=== PATIENT | male | born 1950 ===

== ENCOUNTER 2023-12-07 14:36 | Emergency (ER) | payer MEDICARE, OTHER, SELFPAY ==
[2023-12-07 14:48] VITALS: BP 126/65
[2023-12-07 15:16] LABS: % Basophils 0.4 % (0-2); % Eosinophils 0.1 % (0-6); % Immature Granulocytes 0.6 % (0-0.5); % Monocytes 6.2 % (1.7-9.3); % Neutrophils 88.7 % (42.2-75.2); Absolute Basophils 0.1 10^3/uL (0-0.2); Absolute Immature Granulocytes 0.1 10^3/uL (0-0.05); Absolute Lymphocytes 0.5 10^3/uL (1.2-3.4); Absolute Monocytes 0.9 10^3/uL (0.1-0.6); Absolute Neutrophils 12.1 10^3/uL (1.4-6.5); Hematocrit 40.2 % (39.0-52.0); Mean Corp Hgb Conc. 34.8 g/dL (33.0-37.0); Mean Corpuscular Hgb 30.8 pg (27.0-31.0); Mean Corpuscular Volume 88.4 fL (80.0-94.0); Mean Platelet Volume 11.1 fL (7.4-10.4); Nucleated Red Blood Cells % 0 % (-); Platelet Count 235 10^3/uL (130-400); Red Blood Cell Count 4.55 10^6/uL (4.70-6.10); Red Cell Dist. Width 13.2 % (11.5-14.5); White Blood Cell Count 13.6 10^3/uL (4.8-10.8)
[2023-12-07 15:17] LABS: Urine Albumin 1+ (Neg - Trace); Urine Bilirubin 1+ (Negative); Urine Character Slightly Cloudy (Clear); Urine Color Amber; Urine Glucose 3+ (Negative); Urine Ketone 1+ (Negative); Urine Leukocyte 2+ (Negative); Urine Nitrite Negative (Negative); Urine Occult Blood 4+ (Negative); Urine Urobilinogen Negative (Neg - 1+)
[2023-12-07 15:28] LABS: Urine Red Blood Cell 80-90 /HPF (0-2); Urine Squamous Cell 16-20 /LPF (Few)
[2023-12-07 15:29] LABS: Urine Bacteria Many (Negative); Urine White Cell 26-30 /HPF (0-5)
[2023-12-07 15:33] LABS: ALT (SGPT) 20 U/L (0-50); AST (SGOT) 26 U/L (17-59); Albumin 4.6 g/dl (3.5-5.0); Alkaline Phosphatase 57 U/L (38-126); Blood Urea Nitrogen 25 mg/dl (9-20); Calcium 9.7 mg/dl (8.4-10.2); Carbon Dioxide 20 mmol/L (22-30); Chloride 107 mmol/L (98-107); Glucose 287 mg/dl (70-99); Sodium 140 mmol/L (135-145); Total Bilirubin 0.8 mg/dl (0.2-1.3); Total Protein 7.7 g/dl (6.3-8.2); eGFR > 60.00
[2023-12-07 15:45] LABS: Potassium 4.4 mmol/L (3.5-5.1)
--- NOTE | 2023-12-07 18:01 | ED.GENMED ---
History of Present Illness
General
Chief Complaint: Flank Pain
Source: patient
Exam Limitations: none
Time Seen by Provider: 12/07/23 18:00
Travel History
Have you had any contact with someone who has COVID-19?: No
Do you have any symptoms of coronavirus? Fever > 100 degrees, chills, cough, shortness of breath, sore throat, loss of taste or smell, muscle aches, or headache?: No
History of Present Illness
History of Present Illness:
This is a 73 year old male that comes in with c/o left flank pain. States that he awoke this morning with pain. States that his heart rate was also elevated and it was very painful on the left flank. States that they went to as he started to
vomit. States that they gave him Zofran. States that he still feels a little discomfort. States that he did have urinary burning. Denies any fever, chills, chest pain, SOB, diarrhea, headache, dizziness.
Past History
Past History
ED Past Medical History: NIDDM and Other (Renal calculus, )
ED Past Surgical History: Urological (Prostate Surgery)
Social History
Tobacco: Former smoker
Alcohol: Occasional
Personal:
Living: with family
Review of Systems
Review of Systems
All Other Systems: ROS reviewed and negative except as documented in HPI and ROS
Constitutional: Reports no symptoms; Denies fever or chills
EENT: Reports no symptoms
Respiratory: Reports no symptoms; Denies cough or trouble breathing
Cardiac: Reports no symptoms; Denies chest pain
ABD/GI: Reports nausea and vomiting; Denies diarrhea
: Reports flank pain (Left sided)
Musculoskeletal: Reports no symptoms
Skin: Reports no symptoms
Neurological: Reports no symptoms; Denies dizzy or headache
Psychiatric: Reports no symptoms
Phy Exam
General Physical Exam
General Presentation: no apparent distress
General age: appears stated age
General Skin: warm and dry
General Habitus: elderly
General Mental: alert
General Hydration: dry mucous membranes
ENT Exam
ENT Exam: TM's normal, pharynx normal and neck supple
Eye Exam
Eye Exam: EOMI
Cardiovascular Exam
Cardiovascular Exam: regular rate/rhythm, no edema and normal peripheral pulses
Pulmonary Exam
Pulmonary Exam: lungs clear, no respiratory distress, no rales, chest non tender, no crackles, no rhonchi, no wheezing and no cough
Gastrointestinal Exam
Gastrointestinal Exam: normal bowel sounds, non tender, soft, no organomegaly, no pulsatile mass and non distended
Musculoskeletal Exam
Musculoskeletal Exam: full ROM and no edema
Skin Exam
Skin Exam: normal color, warm/dry, no rash and no petechia
Psychiatric Exam
Psychiatric Exam: normal mood/affect
Course
Orders/Labs/Results
Orders:
Orders
12/07/23 14:54
CT Abd/pel Without Iv Or Oral Urgent
Comment:
Reason For Exam: left flank pain with hematuria for 1 day
12/07/23 15:01
Complete Blood Count/With Diff Urgent
Comprehensive Metabolic Panel Urgent
Urinalysis Reflex To Culture Urgent
Date Specimen was Collected: 12/07/23
Time Specimen was Collected: 14:53
Urine Microscopic Reflex Cult Urgent
Urine Culture Urgent
BRANDY Source: U
Specimen Description:
Obtained by: Random
Date Specimen was Collected: 12/07/23
Time Specimen was Collected: 14:53
12/07/23 18:44
0.9% Sodium Chloride 1000 ml [Nss] 1,000 ml IV BOLUS
CefTRIAXone [Rocephin] 1,000 mg IV NOW STA
12/07/23 18:45
Ketorolac [Toradol] 30 mg IV NOW STA
Abnormal Lab Results
12/07/23
15:01
WBC 13.6 H 10^3/uL
(4.8-10.8)
RBC 4.55 L 10^6/uL
(4.70-6.10)
MPV 11.1 H fL
(7.4-10.4)
Abs Immat Gran (auto) 0.1 H 10^3/uL
(0-0.05)
Absolute Neuts (auto) 12.1 H 10^3/uL
(1.4-6.5)
Absolute Lymphs (auto) 0.5 L 10^3/uL
(1.2-3.4)
Absolute Monos (auto) 0.9 H 10^3/uL
(0.1-0.6)
Immature Gran % 0.6 H %
(0-0.5)
Neutrophils % 88.7 H %
(42.2-75.2)
Lymphocytes % 4.0 L %
(20.5-51.1)
Carbon Dioxide 20 L mmol/L
(22-30)
BUN 25 H mg/dl
(9-20)
Glucose 287 H mg/dl
(70-99)
Urine Ketones 1+ A
(Negative)
Ur Occult Blood Reflex 4+ A
(Negative)
Urine Bilirubin 1+ A
(Negative)
Leukocyte Esterase Rfl 2+ A
(Negative)
Urine RBC 80-90 A /HPF
(0-2)
Urine WBC (Reflex) 26-30 A /HPF
(0-5)
Urine Bacteria (Reflex) Many A
(Negative)
Urine Glucose 3+ A
(Negative)
Urine Albumin (Reflex) 1+ A
(Neg - Trace)
12/07/23 15:01
12/07/23 15:01
Leukocytosis, Dehydration. Carbon dioxide slightly low, Urine positive for infection.
Vital Signs
Initial and Last Documented VS:
Initial Vital Signs
Temp Pulse Resp BP Pulse Ox
98.7 F 80 18 126/65 95
12/07/23 14:48 12/07/23 14:48 12/07/23 14:48 12/07/23 14:48 12/07/23 14:48
Last Documented Vital Signs
Temp Pulse Resp BP Pulse Ox
98.7 F 65 30 133/58 98
12/07/23 14:48 12/07/23 20:45 12/07/23 20:30 12/07/23 20:00 12/07/23 20:45
MDM/Problems Addressed
Differential Diagnosis Includes:
Renal calculus, UTI, Pyelonephrotis
MDM/Problems Addressed:
This is a 73 year old male that comes in with c/o left flank pain, nausea and vomiting. States that this started this morning and that he went to and was given Zofran and then sent to the ER.
Will get labs, CT scan. Give IV fluids and pain medication.
Explained to patient that there is no stone seen on the left but he most likely passed the stone as there is some stranding on the CT scan. Patient also has UTI. Will treat patient for infection and give a prescription for oral antibiotic for the
next 7 days. Patient is from [place] and will need to follow up with his Urologist when he gets home.
Chronic conditions affecting care:
Renal calculus
Acute Exacerbation and/or Progression of Chronic Illness:
Renal calculus
*Radiology
Radiology exam reviewed: radiology read reviewed (CTSmall nonobstructing left renal calculus. Mild left renal collecting systemt dilation and left ureteral dilation wihout findings to confirm radiopaque calculus along the course of the right ureter.
Left greater than right perinephric stranding. Findings the left urinary tract may be the sequela ), all reviewed NAD by ED Provider (CT cont- of recently passed left ureteral calculus. OTher etiology of the lefty mild left renal collecting system
and left ureteral dilation such as additional mildly obstructing process/lesion at the left ureterovesical junction or left ureterovesical reflux cannot be excluded. Small fat only ) and other (CT cont- containing right inguinal hernia containing
unremarkable loop or nonobstructed small bowel. Small fat only containing left inguinal hernia. Sigmoid diverticulosis. )
*Pulse Oximetry
Patient hypoxic: no
*EKG
Interpreted by ED Provider?: NA
Rate: EKG- N/A
*Pageant Director Interpretation
Rate: normal
Heart Rate: 74
Rhythm: sinus
*Critical Care Note
Total Time (30-74mins, 75-104mins- exclusive of procedures): Not Applicable
ED Attending Note
-
Portions of this chart may have been created with voice recognition software.� Occasional wrong word or��sound alike� substitutions may have occurred due to the inherent limitations of voice recognition software.
Discharge Plan
Departure
Patient Disposition: Home (Routine Discharge)
Date of Disposition: 12/07/23
Time of Disposition: 21:21
Patient with high blood pressure during this ER visit?: Yes
Condition: Good
Covid-19: Not Applicable
Discharge Problem:
Urinary tract infection
Instructions: BLOOD PRESSURE, Urinary Tract Infection - Men
Prescriptions:
New
cefdinir 300 mg capsule
300 mg PO BID Qty: 14 0RF
No Action
atorvastatin 20 mg tablet
20 mg PO DAILY
pioglitazone 45 mg tablet
45 mg PO DAILY
metformin 1,000 mg tablet
2,000 mg PO DAILY
Januvia 100 mg tablet
100 mg PO DAILY
Referrals:
NONE,* [Family Provider] -
Activity Restrictions/Additional Instructions:
As discussed, your blood work shows that your white blood cell count is elevated. This goes along with the fact that you have a UTI. Your are also dehydrated so you have been given IV fluids. Please increase your water intake to 8-8oz glasses daily.
Your CT scan is negative for any left renal calculus but it appears that there may have been a stone there that you have already past. You may use Tylenol 1000mg every 6 hours for pain and Ibuprofen 600mg every 6 hours with food for pain. You have
been given a prescription for an antibiotic to take for the next 7 days. Please take as directed and start tomorrow morning. Follow up with the Urologist when you get home. IF YOU HAVE ANY FEVER, INCREASED OR CHANGING PAIN, OR YOU HAVE ANY OTHER
CONCERNS.
Interventions
Interventions:
*Risk Screen - Suicide Last Done: 12/07/23 14:48
*General Assessment Last Done: 12/07/23 14:48
*Neglect/Abuse Screening Last Done: 12/07/23 14:48
FE-Dwccru-Llztkspodw Assessment Last Done: 12/07/23 18:41
ED-Male Genitourinary Assessment Last Done: 12/07/23 18:41
Discharge Date and Time
Print Language: COLOMBIAN
[2023-12-07 18:03] VITALS: BP 151/85
[2023-12-07 19:00] VITALS: BP 104/42
[2023-12-07] MEDS: NSS 1000 IV (19:15)
[2023-12-07] MEDS: TORADOL 30 MG IV (19:15)
[2023-12-07] MEDS: ROCEPHIN 1000 MG IV (19:16)
[2023-12-07 20:00] VITALS: BP 133/58
[2023-12-07 21:00] VITALS: BP 136/69
== END 2023-12-07 21:46 | disposition home or self-care (01) ==
LOC: EMR 14:36
PROVIDERS: Emergency Medicine; EMERGENCY PHYSICIAN Student in an Organized Health Care Education/Training Program
DX: N39.0 Urinary tract infection, site not specified (principal); E11.9 Type 2 diabetes mellitus without complications; Z87.891 Personal history of nicotine dependence; E86.0 Dehydration; Z87.442 Personal history of urinary calculi
CPT/HCPCS: 99284; 96374; 96375; 96361; 74176; 80053; 81003; 81015; 85025; 87086